=== PATIENT | female | born 1985 | race Two or more races ===

== ENCOUNTER 2019-02-19 13:04 | Emergency (ER) | payer SELFPAY ==
[~2019-02-19] VITALS: Ht 170.2 cm; Wt 72.6 kg
[2019-02-19 13:09] VITALS: BP 117/71
[2019-02-19] MEDS ORDERED: PHENAZOPYRIDINE HCL 100 MG TAB PO ONE (14:00)
== END 2019-02-19 14:21 | disposition home or self-care (01) ==
LOC: ER 13:07
DX: N39.0 Urinary tract infection, site not specified (principal); Z98.51 Tubal ligation status; Z90.89 Acquired absence of other organs